=== PATIENT | female | born 1955 | race Caucasian/White ===

== ENCOUNTER 2017-12-12 12:25 | Emergency (ER) | payer MEDICAID ==
[~2017-12-12] VITALS: Ht 165.1 cm; Wt 81.9 kg
[~2017-12-12 12:25] MED LIST: ALBU18HF2 IH; ASPI81TA52 PO; CALC300T4 PO; CHOL10002 PO; CYAN100082 PO; CYCL-394 PO; DOCU-28 PO; EST1T PO; FLO44IN IH; GABA-532 PO; GLUC1CAP33 PO; HCTZ25T PO; HYDR-569 PO; LEVO100T PO; LOSA100T28 PO; LOVA20TA2 PO; PANT40TA39 PO; SYN0.1T PO
[2017-12-12 13:30] LABS: PROTHROMBIN TIME 10.1 SECONDS (9.0-12.0)
[2017-12-12 13:31] LABS: BASOPHILS % (AUTO) 0.4 % (0-1); EOSINOPHILS # (AUTO) 0.1 X10'3 (0-0.9); EOSINOPHILS % (AUTO) 0.8 % (0-6); HEMATOCRIT 44.6 % (35.0-45.0); HEMOGLOBIN 15.3 g/dl (12.0-16.0); LYMPHOCYTES # (AUTO) 1.5 X10'3 (1.1-4.8); MEAN CORPUSCULAR HEMOGLOBIN 28.7 PG (27.0-31.0); MEAN CORPUSCULAR HGB CONC 34.2 % (33.0-36.5); MEAN CORPUSCULAR VOLUME 83.9 FL (78-98); MEAN PLATELET VOLUME 8.4 FL (7.4-10.4); MONOCYTES % (AUTO) 8.9 % (2-12); NEUTROPHILS # (AUTO) 8.8 X10'3 (1.8-7.7); NEUTROPHILS % (AUTO) 76.9 % (42-75); PLATELET COUNT 261 X10'3 (140-440); RED BLOOD COUNT 5.31 X10'6 (4.20-5.60); RED CELL DISTRIBUTION WIDTH 12.1 % (11.5-14.5); WHITE BLOOD COUNT 11.4 X10'3 (4.5-11.0)
[2017-12-12 13:46] LABS: ALANINE AMINOTRANSFERASE 28 U/L (12-78); ALBUMIN 4.3 G/DL (3.4-5.0); ALKALINE PHOSPHATASE 61 IU/L (46-116); ANION GAP 15 (8-16); ASPARTATE AMINO TRANSFERASE 16 U/L (10-37); BILIRUBIN,TOTAL 1.4 MG/DL (0.1-1.0); BLOOD UREA NITROGEN 11 MG/DL (7-18); BUN/CREATININE RATIO 9.7 (6.6-38.0); CALCIUM 10.1 MG/DL (8.5-10.1); CHLORIDE 96 MMOL/L (99-107); CREATININE 1.13 MG/DL (0.40-0.90); GLUCOSE 108 MG/DL (70-104); SODIUM 136 MMOL/L (135-145); TOTAL CARBON DIOXIDE 25.2 MMOL/L (24-32); TOTAL PROTEIN 8.7 G/DL (6.4-8.2); eGFR 49 ML/MIN
[2017-12-12 13:49] LABS: POTASSIUM 2.7 MMOL/L (3.5-5.1)
[2017-12-12] MEDS ORDERED: potassium Cl 20 mEq SR tablet PO STA (13:50)
[2017-12-12] MEDS ORDERED: ondansetron/PF 4mg/2ml inj IV ONE ×2 (14:00→16:50)
[2017-12-12] MEDS ORDERED: normal saline 1000ML IV soln IV ONE (14:00)
[2017-12-12] MEDS ORDERED: potassium Cl oral solution 20 MEQ/15 ML PO ONE (14:00)
[2017-12-12] MEDS ORDERED: morphine 4 MG/ML inj SYRINge IV ONE ×3 (14:20→16:50)
[2017-12-12] MEDS ORDERED: diphenhydrAMINE 50 mg/ml inj IV ONE (14:50)
[2017-12-12] MEDS ORDERED: diphenhydrAMINE 50 mg/ml inj ONE (14:50)
[2017-12-12] MEDS ORDERED: METR250T PO (16:17)
[2017-12-12] MEDS ORDERED: ONDA4TAB9 SL (16:17)
[2017-12-12 16:19] LABS: CLARITY,URINE SLIGHTLY CLOUDY (Clear); COLOR,URINE STRAW (Yellow); GLUCOSE, URINE NEGATIVE (Neg); KETONES,URINE TRACE mg/dl (Neg); LEUKOCYTE ESTERASE ,URINE NEGATIVE (Neg); NITRITES, URINE NEGATIVE (Neg); OCCULT BLOOD,URINE NEGATIVE (Neg); PROTEIN,URINE NEGATIVE (Neg); UROBILINOGEN,URINE 0.2 E.U/dL (0.2-1.0)
[2017-12-12 16:43] LABS: UA COLLECTION TYPE CLN CATCH MIDSTREAM
[2017-12-12 16:44] LABS: BACTERIA,URINE 3+ /HPF (Neg); RBC,URINE 0-2 /HPF (0-2); SQUAMOUS EPITHELIAL CELL,UR MANY /LPF (FEW); WBC,URINE 0-4 /HPF (0-4)
[2017-12-12 17:12] VITALS: BP 120/65
== END 2017-12-12 17:14 | disposition home or self-care (01) ==
LOC: ER 12:26
DX: A08.4 Viral intestinal infection, unspecified (principal); E86.0 Dehydration; N28.9 Disorder of kidney and ureter, unspecified; E87.6 Hypokalemia; K52.9 Noninfective gastroenteritis and colitis, unspecified; K57.30 Diverticulosis of large intestine without perforation or abscess without bleeding; E78.00 Pure hypercholesterolemia, unspecified; I10 Essential (primary) hypertension; J45.909 Unspecified asthma, uncomplicated; K21.9 Gastro-esophageal reflux disease without esophagitis; E11.9 Type 2 diabetes mellitus without complications; G89.29 Other chronic pain; Z90.710 Acquired absence of both cervix and uterus; Z88.8 Allergy status to other drugs, medicaments and biological substances; Z79.899 Other long term (current) drug therapy; Z86.73 Personal history of transient ischemic attack (TIA), and cerebral infarction without residual deficits
CPT/HCPCS: 36415; 74176; 80053; 81001; 85025; 85610; 93005; 96361; 96374; 96375; 96376; 99285; J1200; J2270; J2405; J7030

== ENCOUNTER 2019-03-18 12:20 | Emergency (ER) | payer MEDICAID ==
[~2019-03-18] VITALS: Ht 167.6 cm; Wt 105.0 kg
[~2019-03-18 12:20] MED LIST changes: +HYDR-4383 PO; -HYDR-569 PO; -LOSA100T28 PO; +LOSA100T57 PO
[2019-03-18] MEDS ORDERED: normal saline 1000ML IV soln IVB ONE (14:05)
[2019-03-18] MEDS ORDERED: loperamide 2mg capsule PO ONE (14:10)
[2019-03-18] MEDS ORDERED: glycopyrrolate 0.2mg/ml inj IV ONE (14:10)
[2019-03-18] MEDS ORDERED: magnesium 2GM in 50ml NS 50 ML IV ONE (14:15)
[2019-03-18 14:23] LABS: BASOPHILS % (AUTO) 0.3 % (0-1); EOSINOPHILS # (AUTO) 0.1 X10'3 (0-0.9); HEMATOCRIT 39.7 % (35.0-45.0); HEMOGLOBIN 13.9 g/dl (12.0-16.0); LYMPHOCYTES % (AUTO) 27.5 % (21-51); MEAN CORPUSCULAR HEMOGLOBIN 29.6 PG (27.0-31.0); MEAN CORPUSCULAR HGB CONC 35.1 g/dL (33.0-36.5); MEAN CORPUSCULAR VOLUME 84.2 FL (78-98); MEAN PLATELET VOLUME 7.6 FL (7.4-10.4); MONOCYTES # (AUTO) 0.6 X10'3 (0-0.9); MONOCYTES % (AUTO) 8.8 % (2-12); NEUTROPHILS # (AUTO) 4.4 X10'3 (1.8-7.7); NEUTROPHILS % (AUTO) 61.4 % (42-75); PLATELET COUNT 233 X10'3 (140-440); RED BLOOD COUNT 4.72 X10'6 (4.20-5.60); RED CELL DISTRIBUTION WIDTH 13.2 % (11.5-14.5); WHITE BLOOD COUNT 7.1 X10'3 (4.5-11.0)
[2019-03-18 14:32] LABS: CLARITY,URINE CLEAR (Clear); COLOR,URINE STRAW (Yellow); GLUCOSE, URINE NEGATIVE (Neg); KETONES,URINE NEGATIVE (Neg); LEUKOCYTE ESTERASE ,URINE NEGATIVE (Neg); NITRITES, URINE NEGATIVE (Neg); OCCULT BLOOD,URINE NEGATIVE (Neg); PH,URINE 6.5 (4.8-8.0); PROTEIN,URINE NEGATIVE (Neg); UROBILINOGEN,URINE 0.2 E.U/dL (0.2-1.0)
[2019-03-18 14:36] LABS: ALANINE AMINOTRANSFERASE 25 U/L (12-78); ALBUMIN 3.8 G/DL (3.4-5.0); ALKALINE PHOSPHATASE 61 IU/L (46-116); ANION GAP 6 (8-16); ASPARTATE AMINO TRANSFERASE 17 U/L (10-37); BILIRUBIN,TOTAL 0.6 MG/DL (0.1-1.0); BLOOD UREA NITROGEN 9 MG/DL (7-18); CALCIUM 9.4 MG/DL (8.5-10.1); CHLORIDE 103 MMOL/L (99-107); GLUCOSE 98 MG/DL (70-104); MAGNESIUM 2.1 MG/DL (1.5-2.4); POTASSIUM 3.3 MMOL/L (3.5-5.1); SODIUM 139 MMOL/L (135-145); TOTAL CARBON DIOXIDE 29.7 MMOL/L (24-32); TOTAL PROTEIN 7.7 G/DL (6.4-8.2); eGFR 56 ML/MIN
[2019-03-18 14:42] LABS: UA COLLECTION TYPE CLN CATCH MIDSTREAM
[2019-03-18] MEDS ORDERED: potassium Cl 20 mEq SR tablet PO STA (15:14)
[2019-03-18] MEDS ORDERED: LOPE-144 PO (16:05)
[2019-03-18] MEDS ORDERED: ONDA4TAB12 PO (16:05)
[2019-03-18 16:37] VITALS: BP 144/88
== END 2019-03-18 16:39 | disposition home or self-care (01) ==
LOC: ER 12:21
DX: R19.7 Diarrhea, unspecified (principal); R42 Dizziness and giddiness; G43.909 Migraine, unspecified, not intractable, without status migrainosus; E78.00 Pure hypercholesterolemia, unspecified; I10 Essential (primary) hypertension; J45.909 Unspecified asthma, uncomplicated; K21.9 Gastro-esophageal reflux disease without esophagitis; E11.9 Type 2 diabetes mellitus without complications; G89.29 Other chronic pain; Z86.73 Personal history of transient ischemic attack (TIA), and cerebral infarction without residual deficits; Z90.710 Acquired absence of both cervix and uterus; Z98.890 Other specified postprocedural states; Z87.891 Personal history of nicotine dependence; Z88.5 Allergy status to narcotic agent; Z88.6 Allergy status to analgesic agent; Z79.82 Long term (current) use of aspirin; Z79.899 Other long term (current) drug therapy
CPT/HCPCS: 36415; 80053; 81003; 83735; 85025; 96365; 96366; 96375; 99283; J3475; J7030; J3490

== ENCOUNTER 2019-05-29 20:36 | Emergency (ER) | payer MEDICAID ==
[~2019-05-29] VITALS: Ht 165.1 cm; Wt 104.0 kg
[~2019-05-29 20:36] MED LIST changes: +LOPE-144 PO; +ONDA4TAB12 PO
[2019-05-29 22:08] LABS: BASOPHILS % (AUTO) 0.4 % (0-1); EOSINOPHILS # (AUTO) 0.1 X10'3 (0-0.9); EOSINOPHILS % (AUTO) 1.8 % (0-6); HEMATOCRIT 39.8 % (35.0-45.0); HEMOGLOBIN 13.8 g/dl (12.0-16.0); LYMPHOCYTES # (AUTO) 2.4 X10'3 (1.1-4.8); LYMPHOCYTES % (AUTO) 29.9 % (21-51); MEAN CORPUSCULAR HEMOGLOBIN 29.6 PG (27.0-31.0); MEAN CORPUSCULAR HGB CONC 34.8 g/dL (33.0-36.5); MEAN CORPUSCULAR VOLUME 85.1 FL (78-98); MEAN PLATELET VOLUME 7.3 FL (7.4-10.4); MONOCYTES # (AUTO) 0.7 X10'3 (0-0.9); MONOCYTES % (AUTO) 8.8 % (2-12); NEUTROPHILS # (AUTO) 4.8 X10'3 (1.8-7.7); NEUTROPHILS % (AUTO) 59.1 % (42-75); PLATELET COUNT 213 X10'3 (140-440); RED BLOOD COUNT 4.67 X10'6 (4.20-5.60); RED CELL DISTRIBUTION WIDTH 13.4 % (11.5-14.5); WHITE BLOOD COUNT 8.1 X10'3 (4.5-11.0)
[2019-05-29 22:09] LABS: CLARITY,URINE CLEAR (Clear); COLOR,URINE YELLOW (Yellow); GLUCOSE, URINE NEGATIVE (Neg); KETONES,URINE TRACE mg/dl (Neg); LEUKOCYTE ESTERASE ,URINE TRACE (Neg); NITRITES, URINE NEGATIVE (Neg); OCCULT BLOOD,URINE NEGATIVE (Neg); PROTEIN,URINE NEGATIVE (Neg); UROBILINOGEN,URINE 0.2 E.U/dL (0.2-1.0)
[2019-05-29 22:11] LABS: UA COLLECTION TYPE NON-SPECIFIED
[2019-05-29 22:16] LABS: BACTERIA,URINE FEW /HPF (Neg); MUCUS STRANDS NONE SEEN /LPF (Neg); RBC,URINE NONE SEEN /HPF (0-2); SQUAMOUS EPITHELIAL CELL,UR MODERATE /LPF (FEW); WBC,URINE 0-4 /HPF (0-4)
[2019-05-29 22:24] LABS: ALANINE AMINOTRANSFERASE 24 U/L (12-78); ALBUMIN 3.7 G/DL (3.4-5.0); ALBUMIN/GLOBULIN RATIO 0.8 (1.1-1.5); ALKALINE PHOSPHATASE 65 IU/L (46-116); ANION GAP 12 (8-16); ASPARTATE AMINO TRANSFERASE 15 U/L (10-37); BILIRUBIN,TOTAL 1.2 MG/DL (0.1-1.0); BLOOD UREA NITROGEN 6 MG/DL (7-18); BUN/CREATININE RATIO 6.1 (6.6-38.0); CALCIUM 8.7 MG/DL (8.5-10.1); CHLORIDE 99 MMOL/L (99-107); CREATININE 0.98 MG/DL (0.40-0.90); GLUCOSE 113 MG/DL (70-104); SODIUM 139 MMOL/L (135-145); TOTAL CARBON DIOXIDE 27.7 MMOL/L (24-32); TOTAL PROTEIN 8.1 G/DL (6.4-8.2); eGFR 57 ML/MIN
[2019-05-29 22:26] LABS: POTASSIUM 2.8 MMOL/L (3.5-5.1)
--- NOTE | 2019-05-29 22:59 | NUR ---
pt states she started to feel abd pain on Sunday, placed herself on soft foods. Got worse yesterday, all she had was broth. Today just worse, so she thought she should come in. Hx diverticulosis. She states she thought her potassium was low r/t cramping in her legs.
[2019-05-29] MEDS ORDERED: potassium Cl 20 mEq SR tablet PO STA (23:49)
[2019-05-29] MEDS ORDERED: glycopyrrolate 0.2mg/ml inj IV ONE (23:50)
[2019-05-29] MEDS ORDERED: normal saline 1000ML IV soln IVB ONE (23:50)
[2019-05-30] MEDS: potassium Cl 10 mEq/100mL bag IV SCH ×2 (00:40→02:08)
--- NOTE | 2019-05-30 00:48 | NUR ---
relieving RN for lunch, pt is resting quietly on gurney, resp even and unlabored, family at bedside,
[2019-05-30 02:31] VITALS: BP 144/79
[2019-05-30] MEDS ORDERED: POTA20TA19 PO (02:34)
== END 2019-05-30 03:48 | disposition home or self-care (01) ==
LOC: ER 20:36
DX: E87.6 Hypokalemia (principal); R19.7 Diarrhea, unspecified; G89.29 Other chronic pain; R10.30 Lower abdominal pain, unspecified; G43.909 Migraine, unspecified, not intractable, without status migrainosus; E78.00 Pure hypercholesterolemia, unspecified; I10 Essential (primary) hypertension; J45.909 Unspecified asthma, uncomplicated; K21.9 Gastro-esophageal reflux disease without esophagitis; E11.9 Type 2 diabetes mellitus without complications; Z86.73 Personal history of transient ischemic attack (TIA), and cerebral infarction without residual deficits; Z90.710 Acquired absence of both cervix and uterus; Z98.890 Other specified postprocedural states; Z87.891 Personal history of nicotine dependence; Z88.5 Allergy status to narcotic agent; Z88.6 Allergy status to analgesic agent; Z79.82 Long term (current) use of aspirin; Z79.899 Other long term (current) drug therapy
CPT/HCPCS: 36415; 80053; 81001; 85025; 85610; 87088; 96361; 96365; 96366; 96375; 99283; J3480; J7030; J3490

== ENCOUNTER 2020-07-14 06:09 | Day surgery (SDC) | payer MEDICARE, MEDICAID ==
[2020-07-07 15:43] LABS: BASOPHILS % (AUTO) 0.5 % (0-1); EOSINOPHILS # (AUTO) 0.1 X10'3 (0-0.9); EOSINOPHILS % (AUTO) 1.6 % (0-6); LYMPHOCYTES # (AUTO) 2.1 X10'3 (1.1-4.8); LYMPHOCYTES % (AUTO) 30.2 % (21-51); MEAN CORPUSCULAR HEMOGLOBIN 29.2 PG (27.0-31.0); MEAN CORPUSCULAR HGB CONC 33.7 g/dL (33.0-36.5); MEAN CORPUSCULAR VOLUME 86.5 FL (78-98); MEAN PLATELET VOLUME 7.5 FL (7.4-10.4); MONOCYTES # (AUTO) 0.4 X10'3 (0-0.9); MONOCYTES % (AUTO) 6.1 % (2-12); NEUTROPHILS # (AUTO) 4.4 X10'3 (1.8-7.7); NEUTROPHILS % (AUTO) 61.6 % (42-75); PRE OP HEMATOCRIT 40.4 % (35.0-45.0); PRE OP HEMOGLOBIN 13.6 g/dL (12.0-16.0); PRE OP PLATELET COUNT 231 X10'3 (140-440); RED BLOOD COUNT 4.67 X10'6 (4.20-5.60); RED CELL DISTRIBUTION WIDTH 13.6 % (11.5-14.5)
[2020-07-07 15:45] LABS: CLARITY,URINE SLIGHTLY CLOUDY (Clear); COLOR,URINE YELLOW (Yellow); GLUCOSE, URINE NEGATIVE (Neg); KETONES,URINE NEGATIVE (Neg); LEUKOCYTE ESTERASE ,URINE NEGATIVE (Neg); NITRITES, URINE NEGATIVE (Neg); OCCULT BLOOD,URINE NEGATIVE (Neg); PROTEIN,URINE NEGATIVE (Neg); UA COLLECTION TYPE CLN CATCH MIDSTREAM; UROBILINOGEN,URINE 0.2 E.U/dL (0.2-1.0)
[2020-07-07 15:57] LABS: BACTERIA,URINE 1+ /HPF (Neg); MUCUS STRANDS NONE SEEN /LPF (Neg); RBC,URINE NONE SEEN /HPF (0-2); SQUAMOUS EPITHELIAL CELL,UR FEW /LPF (FEW); WBC,URINE 0-4 /HPF (0-4)
[2020-07-07 15:58] LABS: ALBUMIN 3.8 G/DL (3.4-5.0); ALBUMIN/GLOBULIN RATIO 0.9 (1.1-1.5); ALKALINE PHOSPHATASE 64 IU/L (46-116); BLOOD UREA NITROGEN 11 MG/DL (7-18); BUN/CREATININE RATIO 10.9 (6.6-38.0); CALCIUM 8.9 MG/DL (8.5-10.1); CHLORIDE 101 MMOL/L (99-107); CREATININE 1.01 MG/DL (0.40-0.90); PRE OP ALT 23 U/L (30-65); PRE OP ANION GAP 9 (8-16); PRE OP AST 17 U/L (10-37); PRE OP BILIRUB, TOTAL 0.5 MG/DL (0.0-1.0); PRE OP GLUCOSE 116 MG/DL (70-104); PRE OP POTASSIUM 3.5 MMOL/L (3.4-5.1); PRE OP SODIUM 139 MMOL/L (135-145); TOTAL CARBON DIOXIDE 29.3 MMOL/L (24-32); eGFR 55 ML/MIN
[~2020-07-14] VITALS: Ht 165.1 cm; Wt 103.4 kg
[2020-07-14] VITALS (25 sets, daily range): BP systolic 125–172; BP diastolic 61–82
[~2020-07-14 06:09] MED LIST changes: -CHOL10002 PO; -CYAN100082 PO; -CYCL-394 PO; -DOCU-28 PO; -FLO44IN IH; +FLUT16SP26; -GABA-532 PO; -GLUC1CAP33 PO; -HCTZ25T PO; +HYDR-4353 PO; -HYDR-4383 PO; +LACT1CAP65 PO; -LOPE-144 PO; +LORA10CA PO; +MAGN100T6 PO; +MULT-1085 PO; -ONDA4TAB12 PO; -SYN0.1T PO; +ZINC50TA67 PO; +[UNRECOGNIZED DRUG - CODE] PO; +ceFOXitin 2GM-NS 100mL ADDvant 100 ML IV ONE; +famotidine 20mg tablet PO ONE; +ringers solution, lacted 1,000 ML IV SCH
[2020-07-14] MEDS ORDERED: LIDOcaine 1% (10mg/ml) 2ml vial ONE (06:43)
[2020-07-14] MEDS ORDERED: INDOCYANINE GREEN 25 MG/10 ML VIAL IV ONE (07:30)
[2020-07-14] MEDS ORDERED: BUPIVAcaine/PF 2.5 mg/ml (0.25%) 30ml vial ONE (07:53)
[2020-07-14] MEDS ORDERED: sevoflurane 250ml liquid IH ONE (09:02)
[2020-07-14] MEDS ORDERED: fentaNYL/PF 50MCG/1 ML 2ML syringe ONE (09:04)
[2020-07-14] MEDS ORDERED: midazolam 2 mg/2 ml injection ONE (09:04)
[2020-07-14] MEDS ORDERED: rocuronium 10mg/ml inj IV ONE (09:05)
[2020-07-14] MEDS ORDERED: propofol inj 20 ML IV ONE (09:05)
[2020-07-14] MEDS ORDERED: ondansetron/PF 4mg/2ml inj IV PRN (09:55)
[2020-07-14] MEDS ORDERED: HYDROmorphone/PF 0.2 MG/ML SYRINGE IV PRN (09:55)
[2020-07-14] MEDS ORDERED: meperidine/PF 25mg/ml syringe IV PRN ×2 (09:55)
[2020-07-14] MEDS ORDERED: ringers solution, lacted 1,000 ML IV SCH (09:55)
[2020-07-14] MEDS ORDERED: dexamethasone sod phosphate 4mg/ml inj. ONE (10:11)
[2020-07-14] MEDS ORDERED: ondansetron/PF 4mg/2ml inj ONE (10:11)
[2020-07-14] MEDS ORDERED: sugammadex 200mg/2ml injection IV ONE (10:19)
--- NOTE | 2020-07-14 10:39 | NUR ---
RECEIVED FROM OR VIA [facility] ACCOMPANIED BY ANESTHESIOLOGIST DR NUNEZ, REPORT GIVEN. 20 GAUGE PIV L HAND PATENT AND RUNNING LR AT 100 ML/HR. PT DROWSY BUT AROUSES EASILY AND DENIES PAIN AT THIS TIME. LG BANDAID DRESSING X 4 CDI, ABD SOFT, FIGUEROA, VSS, PPULSES PAPLPABLE, BRISK CAP REFILL, SKIN PINK AND WARM, RESTING COMFORTABLY.
[2020-07-14] MEDS: meperidine/PF 25mg/ml syringe IV PRN ×4 (10:55→12:38)
[2020-07-14] MEDS: HYDROmorphone/PF 0.2 MG/ML SYRINGE IV PRN ×3 (11:18→11:39)
--- NOTE | 2020-07-14 15:05 | NUR ---
PT AWAKEAND ALERT WITH PAIN AT LEVEL 4. 20 GAUGE PIV L HAND DC/D CATH TIP INTACT.LG BANDAID DRESSING X 4 CDI, ABD SOFT, FIGUEROA, VSS, PPULSES PAPLPABLE, BRISK CAP REFILL, SKIN PINK AND WARM. PT TOLERATING FLUIDS, ABLE TO DRESS SELF, AMBULATE WITHOUT ASSIST AND VOID.DISCHARGE INSTRUCTIONS GIVEN AND PT VERBALIZED UNDERSTANDING. TRANSPORTED VIA WHEELCHAIR TO [facility] IN PRIVATE VEHICLE TO HOME.
== END 2020-07-14 15:05 | disposition home or self-care (01) ==
LOC: PAS 06:09
PROVIDERS: ATTEND Surgery
DX: K80.10 Calculus of gallbladder with chronic cholecystitis without obstruction (principal); Z20.828 Contact with and (suspected) exposure to other viral communicable diseases; E78.00 Pure hypercholesterolemia, unspecified; I10 Essential (primary) hypertension; J44.9 Chronic obstructive pulmonary disease, unspecified; G47.30 Sleep apnea, unspecified; G43.909 Migraine, unspecified, not intractable, without status migrainosus; K21.9 Gastro-esophageal reflux disease without esophagitis; G89.29 Other chronic pain; E66.9 Obesity, unspecified; Z68.37 Body mass index [BMI] 37.0-37.9, adult; Z98.890 Other specified postprocedural states; Z87.891 Personal history of nicotine dependence; Z79.899 Other long term (current) drug therapy; Z88.8 Allergy status to other drugs, medicaments and biological substances; Z88.5 Allergy status to narcotic agent; Z86.73 Personal history of transient ischemic attack (TIA), and cerebral infarction without residual deficits; Z90.710 Acquired absence of both cervix and uterus
CPT/HCPCS: 36415; 47562; 80053; 81001; 82948; 85025; 87635; C9399; J0694; J1100; J1170; J2001; J2175; J2250; J2405; J2704; J3010; J3490; J7120; 88304; A4215; A4618; A7000

== ENCOUNTER 2022-10-30 15:36 | Emergency (ER) | payer MEDICARE, MEDICAID ==
[~2022-10-30] VITALS: Ht 166.4 cm; Wt 108.0 kg
[~2022-10-30 15:36] MED LIST changes: +HYDR-3972 PO; -HYDR-4353 PO; -LACT1CAP65 PO; +LACTC PO; -LORA10CA PO; +LORA10TA7 PO; -MAGN100T6 PO; +MULT-1074 PO; -MULT-1085 PO; +ZINC50TA15 PO; -ZINC50TA67 PO; -ceFOXitin 2GM-NS 100mL ADDvant 100 ML IV ONE; -famotidine 20mg tablet PO ONE; -ringers solution, lacted 1,000 ML IV SCH
[2022-10-30 15:43] VITALS: BP 157/63
[2022-10-30] MEDS ORDERED: CETI10TA15 PO (17:32)
== END 2022-10-30 18:34 | disposition home or self-care (01) ==
LOC: ER 15:37
DX: J39.2 Other diseases of pharynx (principal); E78.00 Pure hypercholesterolemia, unspecified; G43.909 Migraine, unspecified, not intractable, without status migrainosus; K21.9 Gastro-esophageal reflux disease without esophagitis; E11.9 Type 2 diabetes mellitus without complications; G89.29 Other chronic pain; M54.9 Dorsalgia, unspecified; E07.9 Disorder of thyroid, unspecified; Z88.5 Allergy status to narcotic agent; Z88.8 Allergy status to other drugs, medicaments and biological substances; Z88.6 Allergy status to analgesic agent; Z79.899 Other long term (current) drug therapy; Z79.1 Long term (current) use of non-steroidal anti-inflammatories (NSAID); Z79.82 Long term (current) use of aspirin; Z79.2 Long term (current) use of antibiotics
CPT/HCPCS: 99282

== ENCOUNTER 2023-03-15 22:28 | Emergency (ER) | payer MEDICARE, MEDICAID ==
[~2023-03-15] VITALS: Ht 167.6 cm; Wt 106.8 kg
[~2023-03-15 22:28] MED LIST changes: +CETI10TA15 PO; -LOSA100T57 PO; +LOSA100T58 PO
[2023-03-15 23:03] LABS: BASOPHILS % (AUTO) 0.4 % (0-1); EOSINOPHILS # (AUTO) 0.2 X10'3 (0-0.9); EOSINOPHILS % (AUTO) 2.6 % (0-6); HEMATOCRIT 41.8 % (35.0-45.0); HEMOGLOBIN 14.3 g/dl (12.0-16.0); LYMPHOCYTES % (AUTO) 41.8 % (21-51); MEAN CORPUSCULAR HEMOGLOBIN 29.1 PG (27.0-31.0); MEAN CORPUSCULAR HGB CONC 34.2 g/dL (33.0-36.5); MEAN CORPUSCULAR VOLUME 85.1 FL (78-98); MEAN PLATELET VOLUME 7.9 FL (7.4-10.4); MONOCYTES # (AUTO) 0.7 X10'3 (0-0.9); MONOCYTES % (AUTO) 9.9 % (2-12); NEUTROPHILS # (AUTO) 3.3 X10'3 (1.8-7.7); NEUTROPHILS % (AUTO) 45.3 % (42-75); PLATELET COUNT 195 X10'3 (140-440); RED BLOOD COUNT 4.91 X10'6 (4.20-5.60); RED CELL DISTRIBUTION WIDTH 13.8 % (11.5-14.5); WHITE BLOOD COUNT 7.2 X10'3 (4.5-11.0)
[2023-03-15 23:17] LABS: ALANINE AMINOTRANSFERASE 30 U/L (12-78); ALBUMIN 3.9 G/DL (3.4-5.0); ALKALINE PHOSPHATASE 57 IU/L (46-116); ANION GAP 10 (8-16); ASPARTATE AMINO TRANSFERASE 23 U/L (10-37); BILIRUBIN,TOTAL 0.5 MG/DL (0.1-1.0); BLOOD UREA NITROGEN 15 MG/DL (7-18); BUN/CREATININE RATIO 14.7 (10.0-20.0); CALCIUM 9.4 MG/DL (8.5-10.1); CHLORIDE 102 MMOL/L (99-107); CREATININE 1.02 MG/DL (0.40-0.90); GLUCOSE 114 MG/DL (70-104); POTASSIUM 3.5 MMOL/L (3.5-5.1); SODIUM 138 MMOL/L (135-145); TOTAL CARBON DIOXIDE 25.6 MMOL/L (24-32); TOTAL PROTEIN 7.7 G/DL (6.4-8.2); eGFR 54 ML/MIN
[2023-03-16] MEDS ORDERED: potassium Cl 20 mEq SR tablet PO ONE (03:10)
[2023-03-16] MEDS ORDERED: amLODIPine 5mg tablet PO ONE (03:10)
[2023-03-16] MEDS ORDERED: AMLO2.5T2 PO (03:12)
[2023-03-16 04:07] VITALS: BP 177/82
== END 2023-03-16 04:15 | disposition home or self-care (01) ==
LOC: ER 22:29
DX: I10 Essential (primary) hypertension (principal); R42 Dizziness and giddiness; G43.909 Migraine, unspecified, not intractable, without status migrainosus; E78.00 Pure hypercholesterolemia, unspecified; J45.909 Unspecified asthma, uncomplicated; E11.9 Type 2 diabetes mellitus without complications; G89.29 Other chronic pain; M54.9 Dorsalgia, unspecified
CPT/HCPCS: 36415; 71045; 80053; 83880; 84484; 85025; 93005; 99285

== ENCOUNTER 2025-07-04 00:43 | Emergency (ER) | payer MEDICARE, MEDICAID ==
[~2025-07-04] VITALS: Ht 165.1 cm; Wt 93.2 kg
[~2025-07-04 00:43] MED LIST changes: -ALBU18HF2 IH; +ASPI-920 PO; -ASPI81TA52 PO; -CALC300T4 PO; -CETI10TA15 PO; +CLOP75TA33 PO; -EST1T PO; +EZET10TA80 PO; -FLUT16SP26; -LACTC PO; -LEVO100T PO; +LEVO125T8 PO; -LORA10TA7 PO; -LOSA100T58 PO; +LOSA50TA64 PO; -LOVA20TA2 PO; -MULT-1074 PO; -PANT40TA39 PO; -ZINC50TA15 PO; -[UNRECOGNIZED DRUG - CODE] PO
[2025-07-04 00:45] VITALS: BP 143/74; PULSE 70; O2SAT 96
[2025-07-04 02:12] VITALS: RESP 14
--- NOTE | 2025-07-04 02:14 | Physician Documentation ---
History of Present Illness ~ Chief Complaint: Constipation Stated Complaint: CONSTIPATION Time Seen by MD: 02:06 Primary Medical Doctor: TATO; SAMM HPI 70-year-old female, recent shoulder surgery and on opiate pain medications who presents with constipation and lower abdominal pain. She tells me that she had her right shoulder replaced about a week ago. She has been on opiate pain medications since that time. She has not had a bowel movement in 6 days. Yesterday she did take some laxatives and then took some magnesium today. She states that she has been passing some small pieces of stool, but now is not. She reports lower abdominal cramping and pain. No fevers, no vomiting, no other acute concerns. Medication Reconciliation Allergies: Coded Allergies: hydromorphone (Verified Allergy, Severe, itchy, hives, 07/04/25) duloxetine (Verified Allergy, Intermediate, hallucinations, 07/04/25) hydromorphone HCl (Verified Allergy, Intermediate, HIVES, 07/04/25) morphine (Verified Allergy, Intermediate, PRURITUS, HIVES, 07/04/25) oxycodone (Verified Allergy, Intermediate, HIVES AND RASH, 07/04/25) prednisone (Verified Allergy, Mild, REDNESS TO FACE, 07/04/25) epinephrine (Verified Adverse Reaction, Intermediate, TACHYCARDIC, HIVES, 06/26/25) levofloxacin (Verified Adverse Reaction, Unknown, tendon tear, 10/30/22) Scheduled Aspirin (Aspirin Chewable), 81 MG PO DAILY Clopidogrel Bisulfate (Clopidogrel), 1 TAB PO DAILY Ezetimibe (Ezetimibe), 1 TAB PO DAILY Levothyroxine Sodium (Levothyroxine Sodium), 1 TAB PO DAILY, (Reported) Losartan Potassium (Losartan Potassium), 1 TAB PO DAILY, (Reported) Scheduled PRN Hydrocodone Bit/Acetaminophen (Hydrocodon-Acetaminophn 10-325 tablet), 1 TAB PO TID PRN PRN for pain, (Reported) Discontinued Medications Estradiol* (Estrace*), 1 MG PO DAILY, (Reported) Past Medical History Past Medical History: CVA/TIA/Stroke, Migraine, High Cholesterol, Hypertension, Asthma, Diverticulitis, GERD, Diabetes, Thyroid (unspecified), Chronic Back Pain Past Surgical History: hysterectomy, orthopedic surgeries Patient History: (CAD) Coronary arteriosclerosis MOTHER, , Age: 81, Cause: CHF (congestive heart failure) FH: hypertension FATHER MOTHER, , Age: 81, Cause: CHF (congestive heart failure) PPM MOTHER, , Age: 81, Cause: CHF (congestive heart failure) Alcohol Use: None Drug Use: none Lives with: Family Lives In: Home Occupation: other Review of Systems Gastrointestinal: Reports: abdomen distended, abdominal pain, constipated; Denies: vomiting Physical Exam Vital Signs: Temperature: 97.8, Source: Temporal, Heart Rate: 70, Respiratory Rate: 16, BP: 143/74, Pulse Oximetry: 96, Weight: 93.200 Physical Exam General: This is a pleasant and uncomfortable appearing older woman, family at bedside HEENT: Atraumatic, oropharynx appears dry Heart: Regular rate and rhythm, normal-appearing peripheral perfusion Lungs: normal work of breathing, normal oxygen saturation on room air Abdomen: Soft, mildly distended. Tender to palpation across the lower abdomen, without rebound or guarding : Exam was chaperoned by a female nurse The patient has a normal external exam, with normal rectal tone. The rectal vault is empty, there was no large stool ball. There is a small amount of light brown stool present when I withdrawal the glove Extremities: Right upper extremity is in a sling Neuro: Alert and oriented Psychiatric: Calm and cooperative with exam Progress Results/Orders Results/Orders Orders - YAHAIRA NEVAREZ MD Straight Cath For Urine Sample (07/04/25 02:01) * Soap Suds Enema* (07/04/25 02:31) Completed Orders - YAHAIRA NEVAREZ MD Cbc/Diff (07/04/25 02:01) Lipase (07/04/25 02:01) CMP (07/04/25 02:01) Methylnaltrexone Br Inj (Relistor Inj (07/04/25 02:15) Medications Received in ER Medications (Trade) Dose Ordered Sig/Matilde Route PRN Reason Start Time Stop Time Status Last Admin Dose Admin (Relistor inj SubQ only) 12 mg ONCE ONCE SQ 07/04/25 02:15 07/04/25 02:16 DC 07/04/25 02:35 12 MG Vital Signs 07/04/25 07/04/25 00:45 02:12 Temp 97.8 Pulse 70 Resp 16 14 B/P (MAP) 143/74 Pulse Ox 96 Laboratory Tests Test 07/04/25 02:08 White Blood Count 5.3 Red Blood Count 4.34 Hemoglobin 12.7 Hematocrit 36.7 Mean Corpuscular Volume 84.5 Mean Corpuscular Hemoglobin 29.2 Mean Corpuscular Hemoglobin Concent 34.5 Red Cell Distribution Width 13.5 Platelet Count 227 Mean Platelet Volume 7.4 Neutrophils (%) (Auto) 55.4 Lymphocytes (%) (Auto) 31.7 Monocytes (%) (Auto) 10.0 Eosinophils (%) (Auto) 2.2 Basophils (%) (Auto) 0.7 Neutrophils # (Auto) 3.0 Lymphocytes # (Auto) 1.7 Monocytes # (Auto) 0.5 Eosinophils # (Auto) 0.1 Basophils # (Auto) 0.0 CBC Comment Sodium Level 134 L Potassium Level 3.8 Chloride Level 98 L Carbon Dioxide Level 26.9 Anion Gap 9 Blood Urea Nitrogen 15 Creatinine 0.81 Estimated GFR/1.73 m2 70 BUN/Creatinine Ratio 18.5 Glucose Level 115 H Calcium Level 8.5 Total Bilirubin 1.5 H Aspartate Amino Transf (AST/SGOT) 286 H Alanine Aminotransferase (ALT/SGPT) 362 H Alkaline Phosphatase 230 H Total Protein 7.4 Albumin 3.1 L Globulin 4.3 Albumin/Globulin Ratio 0.7 L Lipase 40 Chemistry Comments Re-Evaluation Re-Evaluation : Re-Evaluation: Improved Progress The patient had a large bowel movement and states that she feels somewhat better. Medical Decision Making Additional information obtaine: family Findings Family reports she has taken several laxatives Diff Dx GI Bleed:Consideration: Unlikely: Blood loss anemia Diff Dx Pain:Considerations: Include: Bowel obstruction Diff Dx N/V/D:Considerations: Include: Dehydration Diff Dx Rectal:Considerations: Include: Impaction Additional Comments The patient presents with constipation in the setting of opiate pain medications after surgery. Overall, this seems most likely represent opiate induced consti pation. She has already tried some laxatives. She was given a dose of Relistor. Disimpaction was attempted but there was no large stool ball. She was given a soapsuds enema. Following this she did have a large bowel movement. She felt slightly better. I feel she is safe for discharge home with a plan to start taking a daily stool softener, and continue using laxatives. She will drink plenty of fluids to stay hydrated. Return precautions given if she does develop worsening abdominal pain or vomiting or other concerning symptoms Departure Time of Disposition: 03:58 Disposition: 01 HOME / SELF CARE / HOMELESS Impression: Primary Impression: Constipation due to opioid therapy Condition: Improved Discharge Instructions: Constipation, Adult Referrals: NO PRIMARY CARE PROVIDER (PCP) Education Educated: Patient, Family Educated regarding: diagnosis, need for follow up Signature Scribe Signature: tacho Attestation: YAHAIRA Buckner MD Jul 04, 2025 02:14
[2025-07-04 02:22] LABS: MEAN PLATELET VOLUME 7.4 FL (7.4-10.4); RED CELL DISTRIBUTION WIDTH 13.5 % (11.5-14.5)
[2025-07-04] MEDS: methylnaltrexone br 12mg/0.6ml inj***SubQ only SQ ONE (02:35)
[2025-07-04 02:39] LABS: CREATININE 0.81 MG/DL (0.40-0.90); TOTAL CARBON DIOXIDE 26.9 MMOL/L (24-32); eCRCL 58 ML/MIN; eGFR 70 ML/MIN
[2025-07-04 04:05] VITALS: TEMP 97.8
== END 2025-07-04 04:06 | disposition home or self-care (01) ==
LOC: ER 00:43
DX: K59.03 Drug induced constipation (principal); E11.9 Type 2 diabetes mellitus without complications; E78.00 Pure hypercholesterolemia, unspecified; G89.29 Other chronic pain; I10 Essential (primary) hypertension; I25.10 Atherosclerotic heart disease of native coronary artery without angina pectoris; J45.909 Unspecified asthma, uncomplicated; K21.9 Gastro-esophageal reflux disease without esophagitis; G43.909 Migraine, unspecified, not intractable, without status migrainosus; Z86.73 Personal history of transient ischemic attack (TIA), and cerebral infarction without residual deficits; Z90.710 Acquired absence of both cervix and uterus; Z88.5 Allergy status to narcotic agent; Z88.8 Allergy status to other drugs, medicaments and biological substances; Z79.82 Long term (current) use of aspirin; Z79.899 Other long term (current) drug therapy
CPT/HCPCS: 36415; 80053; 83690; 85025; 96372; 99284; J2212

== ENCOUNTER 2025-08-07 22:14 | Emergency (ER) | payer MEDICARE, MEDICAID ==
--- NOTE | 2025-08-08 02:17 | RADIOLOGY REPORT ---
EXAM: CT CT HEAD INDICATION: fall, head strike, JOLLY + face pain TECHNIQUE: CT of the head without intravenous contrast. Radiation Dose : 1. Head: CT Dose: CTDI volume is 57.47 mGy. Dose-length product is 1026.83 mGy*cm The dose indicators for CT are the volume Computed Tomography (CT) Dose Index (CTDIvol) and the Dose Length Product (DLP), and are measured in units of mGy and mGy-cm, respectively. These indicators are not patient dose, but values generated from the CT scanner acquisition factors. The report includes radiation exposure data for exposures received during this examination. COMPARISON: MR MRI HEAD on DOS: 06/30/25, CT CTA NECK/HEAD on DOS: 06/30/25, CT CT HEAD on DOS: 06/29/25 FINDINGS: There is no evidence of acute intracranial hemorrhage, extra-axial collection, mass effect, midline shift, herniation or hydrocephalus. The ventricles, sulci and cisterns are age appropriate. The pickens-white differentiation is intact. Patchy periventricular and subcortical white matter hypoattenuation is nonspecific but may be related to small vessel ischemic disease. The visualized paranasal sinuses and mastoid air cells are clear. The surrounding soft tissues and osseous structures are unremarkable. IMPRESSION: 1. No acute intracranial abnormality. Radiation optimization: All CT scans at this facility use at least one of these dose optimization techniques: automated exposure control mA and/or kV adjustment per patient size (includes targeted exams where dose is matched to clinical indication) or iterative reconstruction.
--- NOTE | 2025-08-08 03:17 | Physician Documentation ---
History of Present Illness ~ Chief Complaint: Mechanical Fall Stated Complaint: FALL Time Seen by MD: 01:06 Primary Medical Doctor: LAN GARZA Mode of Arrival: POV HPI This is a very pleasant 70-year-old female who presents for evaluation of potential traumatic injuries sustained a mechanical fall after she tripped over the cord and fell face 1st. She reports an immediate onset sharp nonradiating pain in her face and neck. No particular palliating factors other than position of comfort. Did not attempt to treat it. This never happened in the past. She struck her head/face. Denies chest pain or difficulty breathing. Denies any abdominal pain. No concern for tobacco, alcohol or illicit substances use Tetanus within 5 Years?: Yes Medication Reconciliation Allergies: Coded Allergies: hydromorphone (Verified Allergy, Severe, itchy, hives, 08/07/25) duloxetine (Verified Allergy, Intermediate, hallucinations, 08/07/25) hydromorphone HCl (Verified Allergy, Intermediate, HIVES, 08/07/25) morphine (Verified Allergy, Intermediate, PRURITUS, HIVES, 08/07/25) oxycodone (Verified Allergy, Intermediate, HIVES AND RASH, 08/07/25) prednisone (Verified Allergy, Mild, REDNESS TO FACE, 08/07/25) epinephrine (Verified Adverse Reaction, Intermediate, TACHYCARDIC, HIVES, 06/26/25) levofloxacin (Verified Adverse Reaction, Unknown, tendon tear, 10/30/22) Scheduled Aspirin (Aspirin Chewable), 81 MG PO DAILY Clopidogrel Bisulfate (Clopidogrel), 1 TAB PO DAILY Ezetimibe (Ezetimibe), 1 TAB PO DAILY Levothyroxine Sodium (Levothyroxine Sodium), 1 TAB PO DAILY, (Reported) Losartan Potassium (Losartan Potassium), 1 TAB PO DAILY, (Reported) Scheduled PRN Hydrocodone Bit/Acetaminophen (Hydrocodon-Acetaminophn 10-325 tablet), 1 TAB PO TID PRN PRN for pain, (Reported) Past Medical History Past Medical History: CVA/TIA/Stroke, Migraine, High Cholesterol, Hypertension, Asthma, Diverticulitis, GERD, Diabetes, Thyroid (unspecified), Chronic Back Pain Past Surgical History: hysterectomy, orthopedic surgeries Patient History: (CAD) Coronary arteriosclerosis MOTHER, , Age: 81, Cause: CHF (congestive heart failure) FH: hypertension FATHER MOTHER, , Age: 81, Cause: CHF (congestive heart failure) PPM MOTHER, , Age: 81, Cause: CHF (congestive heart failure) Alcohol Use: None Drug Use: none Lives with: Family Lives In: Home Occupation: other Review of Systems ROS 10 point review of systems was performed and unless noted above in HPI is negative for acute process/complaint. Physical Exam Vital Signs: Heart Rate: 62, Respiratory Rate: 17, BP: 151/80, Pulse Oximetry: 95 Physical Exam GENERAL: Awake, alert, oriented, GCS 15, no apparent distress, non-toxic appearing, answers questions, follows commands appropriately. HEENT: There is a bruising to the forehead, no active bleeding, no palpable skull fracture, normocephalic, pupils equal, extraocular muscles intact, sclerae anicteric, mucus membranes moist, oropharynx is clear, no stridor. NECK: supple, no midline tenderness to palpation, trachea midline, no thyromegaly, no lymphadenopathy, no JVD. CARDIOVASCULAR: regular rate/rhythm, no murmurs/gallops/rubs, Pulses are 2+ in all extremities and symmetric. Capillary refill less than 2 seconds. PULMONARY: Nonlabored, good air movement ,no respiratory distress, speaking in full sentences, clear to auscultation bilaterally, no wheezing, no ronchi, no rales, no accessory muscle use. GASTROINTESTINAL: Soft, non-tender, non-distended, normal active bowel sounds, no organomegaly, no pulsatile masses, no CVA tenderness. NEUROLOGIC: Lucid with normal mental status. Normal facial symmetry. Moves all extremities symmetrically and with purpose. No truncal ataxia. Speech is fluid without evidence of dysarthria or aphasia, no focal deficits appreciated. MUSCULOSKELETAL: There is full range of motion of all extremities. There is no joint pain or joint swelling or joint erythema. There is no muscle pain or tenderness or swelling. EXTREMITIES: warm, well-perfused, no cyanosis, no clubbing, no edema, no acute deformities. Skin: warm, dry, no rashes or lesions, no jaundice, no petechiae orpurpura. No ecchymosis. PSYCHIATRIC: Normal affect, normal insight, normal concentration. Focused exam: [] Progress Results/Orders Results/Orders Orders - GILBERTO ROLON DO Ct Head (12/6/25 01:26) Ct Facial Bones/Soft Tissue (08/08/25 01:26) Ct Cervical Spine (08/08/25 ) Completed Orders - GILBERTO ROLON DO Ct Head (08/08/25 01:26) Ct Facial Bones/Soft Tissue (08/08/25 01:26) Ct Cervical Spine (08/08/25 ) Hydrocodone/Apap 10/325 ([place] 10/325mg (08/08/25 03:25) Medications Received in ER Medications (Trade) Dose Ordered Sig/Matilde Route PRN Reason Start Time Stop Time Status Last Admin Dose Admin ([place] 10/325mg tab) 1 tab ONCE ONCE PO 08/08/25 03:25 08/08/25 03:26 DC 08/08/25 03:29 1 TAB Vital Signs 08/07/25 08/08/25 08/08/25 08/08/25 23:17 00:29 02:34 03:21 Pulse 71 62 57 Resp 15 18 17 16 B/P (MAP) 177/78 151/80 (103) 137/67 (90) Pulse Ox 99 95 95 08/08/25 03:29 Resp 16 Medical Decision Making Additional information obtaine: family Findings Facility Status: ED Holds, RME process The plan was discussed with the patient, who demonstrates clear understanding of the plan and is in agreement with the plan unless otherwise noted in the chart. All questions have been answered, all concerns were addressed unless otherwise documented. I was available throughout their ED stay for frequent reassessment and questions. Differential Diagnoses (considered and possible or likely): [Ground level fall, acute traumatic pain, closed head injury, concussion, subdural, subarachnoid, cervical spine fracture or subluxation] ??Differential Diagnoses (considered and unlikely, not requiring evaluation currently): [No evidence of lateralizing sinuses suspect a stroke] MDM Data Please see HPI for the following: Independent Historians and external Records Review. Historian: [Patient] Independent Historians: ?[Record review, family] Medication Management: [Reviewed medication list] Social History and determinants: [Reviewed] Please see the body of the note for the following: Any independent interpretations of ECG, imaging studies. All vitals signs/haemodynamics, ordered tests were independently reviewed and interpreted by myself. Nursing triage complaint and vitals reviewed, additional nursing notes were reviewed as available and I agree unless otherwise noted or documented in contradiction in the chart Vital Signs: Independently reviewed Labs: Independently interpreted Imaging: Independently interpreted Old Medical Records: Independently reviewed, see HPI for relevant summary and information Pulse Oximetry: [97%] interpreted as [normal on room air] by me [Senior Climate Advisor: [Regular Rate, Regular rhythm, no ectopy, NSR] reviewed and interpreted by me] Additionally notably showing: [Hemodynamically stable. No evidence of hy potension, tachycardic, respiratory distress. Advanced imaging was obtained. Head CT shows no acute intracranial abnormality. CT cervical spine shows no fracture or subluxation. Facial CT shows no fracture.] Tests considered but not ordered include: [Hematologic workup has been considered but does not appear to be necessary given mechanical nature of the injury.] Social Determinants of Health Impact: Patient was evaluated in [facility] [place] to healthcare due to below par ratio of patient to medical providers. [] Comorbid Conditions Impacting Present Evaluation and Care/Treatment: [None] Management Discussions with other Healthcare Providers: [] Treatment and Disposition Medication Management (Given or considered): Pain control. The patient initially refused pain management but then requested it. See EMR for details Consideration for Hospitalization/Escalation/Deescalation of Care: Admission for observation has been considered, [however the patient is able to tolerate p.o., their symptoms are controlled, they are able to rely on oral medications, and their chief complaint/diagnosis can be managed on outpatient basis.] ?ED Course:?[No clinical deterioration.] ?Shared decision making:?[Patient is hemodynamically stable for discharge home with follow with their primary care provider. [ ] Specific and cautious return precautions provided and discussed with full understanding. Any incidental findings were also discussed and follow up recommendations given. [] All questions answered. Patient/family were able to verbalize back return precautions. Patient/family agree to plan. Copies of imaging and laboratory studies were provided.] Code status:?FULL Please see the full Electronic Medical Record for full details of nursing documentation, medications list, other records of complete past medical history and conditions, vital signs, laboratory studies, and any radiologic study interpretations by radiologists. Portions of this note were completed using [employer] dictation software and as a result there may exist minor errors in spelling. I have reviewed elements of past family and social history and agree as included in note. Differential Dx:Considerations: Include: Closed head injury, Fracture(s), Cerebral contusion, Spine injury, Abrasion(s), Contusion(s), Hematoma(s); Unlikely: Cardiac injury, Intraabdominal injury, Pneumothorax, Pulmonary contusion, Tracheal injury, Urological injury, Vascular injury, Foreign body(s), Laceration(s), Encephalopathy Departure Disposition: HOME / SELF CARE / HOMELESS Impression: Primary Impression: Ground-level fall Additional Impressions: Acute traumatic pain Closed head injury Traumatic hematoma of forehead Condition: Improved Discharge Instructions: Concussion, Adult, Contusion Referrals: NO PRIMARY CARE PROVIDER (PCP) Education Educated: Patient Educated regarding: diagnosis, treatment, prognosis, need for follow up Signature Scribe Signature: No scribe Attestation: The note accurately reflects work and decisions made by me.Gilberto oRlon DO 08/08/25 03:16 GILBERTO ROLON DO Aug 08, 2025 03:17
[2025-08-08] MEDS: HYDROcodone/acetaminophen 10/325mg tab PO ONE (03:29)
--- NOTE | 2025-08-08 03:34 | RADIOLOGY REPORT ---
HISTORY: fall, head strike, JOLLY + face pain TECHNIQUE: Nonenhanced axial images through the facial bones with coronal and sagittal MPR. Radiation Dose Information: CT Dose: CTDI volume is 54.49 mGy. Dose-length product is 1164.63 mGy*cm COMPARISON: CT CT HEAD on DOS: 08/08/25, CT CTA NECK/HEAD on DOS: 06/30/25, CT CT HEAD on DOS: 06/29/25 FINDINGS: Mandible: Unremarkable Maxilla: Unremarkable Zygomatic arches: Unremarkable Nasal bone: Unremarkable Orbits: Unremarkable Sinuses: Clear Facial swelling: None IMPRESSION: 1. No acute facial fractures. Radiation optimization: All CT scans at this facility use at least one of these dose optimization techniques: automated exposure control mA and/or kV adjustment per patient size (includes targeted exams where dose is matched to clinical indication) or iterative reconstruction.
--- NOTE | 2025-08-08 04:01 | RADIOLOGY REPORT ---
EXAM: CT CT CERVICAL SPINE HISTORY: fall, head strike, JOLLY + face pain COMPARISON: None CTDIvol 23.39 mGy, DLP 568.78 mGy*cm. TECHNIQUE: Multiple axial CT images of the spine were obtained using bone algorithm. Axial and coronal reformatting was done. Bone and soft tissue windows were reviewed. FINDINGS: Hardware status post C4 through C6 anterior discectomy and fusion. No evidence of complication. No CT evidence of definite acute fracture, spinal dislocation, or significant appearing acute subluxation is seen. The visualized paraspinal soft tissues are grossly unremarkable. Moderate degenerative changes include disc height loss at the C3-C4 and C6-C7 levels with adjacent endplate sclerosis and anterior osteophytosis. Moderate multilevel bilateral facet hypertrophy. IMPRESSION: 1. No definite CT evidence of acute fracture or dislocation of the bony cervical spine. 2. Degenerative and postsurgical change of the cervical spine without evidence of hardware complication.
[2025-08-08 04:35] VITALS: BP 150/76; PULSE 56; RESP 16; TEMP 98.2; O2SAT 97
== END 2025-08-08 04:38 | disposition home or self-care (01) ==
LOC: ER 22:14
DX: S00.83XA Contusion of other part of head, initial encounter (principal); G89.11 Acute pain due to trauma; E11.9 Type 2 diabetes mellitus without complications; E78.00 Pure hypercholesterolemia, unspecified; G89.29 Other chronic pain; I10 Essential (primary) hypertension; I25.10 Atherosclerotic heart disease of native coronary artery without angina pectoris; G43.909 Migraine, unspecified, not intractable, without status migrainosus; K21.9 Gastro-esophageal reflux disease without esophagitis; Z90.710 Acquired absence of both cervix and uterus; Z88.5 Allergy status to narcotic agent; Z88.1 Allergy status to other antibiotic agents; Z88.8 Allergy status to other drugs, medicaments and biological substances; Z86.73 Personal history of transient ischemic attack (TIA), and cerebral infarction without residual deficits; Z79.82 Long term (current) use of aspirin; Z79.899 Other long term (current) drug therapy; W18.30XA Fall on same level, unspecified, initial encounter; Y93.89 Activity, other specified; Y92.89 Other specified places as the place of occurrence of the external cause; Y99.8 Other external cause status
CPT/HCPCS: 70450; 70486; 72125; 99284